=== PATIENT | male | born 1950 | race Caucasian/White ===

== ENCOUNTER 2024-04-16 08:29 | Outpatient (AMB) | payer MEDICARE, OTHER, SELFPAY ==
--- NOTE | 2024-04-16 08:32 | MHC.OFFVIS ---
Vital Signs 04/16/24 08:40 Height 5 ft 11 in Weight 203 lb 0.732 oz BMI 28.3 BP 132/70 Blood Pressure Location Lt brachial Position Sitting Pulse 63 Pulse Source Pulse Oximeter Pulse Oximetry (%) 96 Oxygen Delivery Method Room Air Intake Visit Reasons: RA/lm Intake Note: Patient presents for RA. Feeling everyday lower back pain and I'm very concern about my left lung. Allergies No Known Allergies Allergy (Verified 04/16/24 08:37) HPI Comments Details: This is a 74-year-old male who presents for evaluation of positive rheumatoid factor in the setting of large left pleural effusion. He started having left-sided pleuritic chest pain 08/2023, he had a chest x-ray which showed a small pleural effusion. 09/2023 patient started having right shoulder pain that he attributed to rotator cuff tendinopathy after throwing football, he had right shoulder pain that travels to the left shoulder. Because the shoulder pains got worse he had a left shoulder x-ray which incidentally showed a large left pleural effusion. He had a couple of thoracentesis procedures, the fluid was exudative with no signs of malignancy or infection. Weight factor was significantly elevated and he was sent to Rheumatology for evaluation of an underlying autoimmune rheumatic disease. Of note patient had of episodes of episcleritis back in 2005 which were treated with ibuprofen. Patient states that he has had low back pain decades. Associated with stiffness. Did not receive any specific treatments for it. He denies any other significant joint pain swelling or stiffness. Denies any weight loss. Denies any rashes or Raynaud's. Denies any history of DVT/PE. [facility] Medical History (Updated 04/16/24 @ 09:28 by Carlos Johnson MD) Episcleritis Pain in joint, multiple sites Rheumatoid factor positive CKD (chronic kidney disease) H/O pleural effusion Surgical History Hx of colonoscopy Family History (Updated 04/05/24 @ 12:07 by CHARLEY Elkins) Mother Breast cancer Father Multiple myeloma Maternal Grandmother Diabetes Social History (Updated 04/16/24 @ 08:58 by Carlos Johnson MD) Household Members: Spouse Housing: House Alcohol intake: current Comment: Occasionally Patient Tobacco Use Status: Never used Tobacco Current occupational status: retired Current occupation: teacher Review of Systems Const Reports fatigue Eyes Reports dry eyes ENT Details: Runny nose Resp Reports cough Musc Reports back pain, Denies arthralgias, Denies joint swelling and Denies stiffness Endo Reports fatigue Physical Exam Vital Signs: Last Vital Signs Pulse 63 04/16/24 08:40 BP 132/70 04/16/24 08:40 Pulse Ox 96 04/16/24 08:40 Oxygen Delivery Method Room Air 04/16/24 08:40 BMI result Body Mass Index 28.3 Const General: cooperative, healthy appearing and comfortable Nutritional Appearance: overweight Orientation/consciousness: patient oriented x3 Limitations: no limitations HEENT Head: Yes normocephalic and Yes atraumatic Mouth: moist mucous membranes Resp Effort & Inspection: normal respiratory effort and able to speak in complete sentences Cardio Rate: regular rate Skin General skin exam: no rashes or lesions noted Neuro General: patient oriented x3 Extrem Other: Slightly puffy fingers but no active synovitis both hands wrists Normal range of motion of elbows without pain Normal range of motion of shoulders without pain Negative rotator cuff provocative maneuvers bilaterally Negative Speed's test bilaterally Normal nailfold capillaroscopy Negative straight leg raise test bilaterally Negative Fabere test bilaterally No knee pain with full flexion-extension No ankle swelling or tenderness bilaterally Negative MTP squeeze test Miles test 10-13.5 cm Results Reviewed Results Reviewed: CAT SCAN OF CHEST NO CONTRAST ? Exam Date: 10/19/2023 ?8:40 AM Ordering Diagnosis: Pleural effusion ? CT CHEST WITHOUT CONTRAST ? HISTORY: Pleural effusion. ? COMPARISON: ?Chest x-ray 10/13/2023 ? FINDINGS: ? Lungs/pleura: There is a moderate left pleural effusion. ?There is compressive subsegmental atelectasis at the left lung base. ?There is a 5 mm subpleural nodule of the left lower lobe on ?image 128. ? Lymph nodes: Sensitivity for lymphadenopathy is limited without IV contrast. ?Subcentimeter mediastinal lymph nodes. ?No definite enlarged hilar lymph nodes. ? Cardiovascular: No cardiomegaly, pericardial effusion, or thoracic aortic aneurysm. ?There is calcification of the coronary arteries. ? Soft tissues: Thyroid gland is not enlarged. No esophageal abnormality. ? Upper abdomen: No adrenal mass. ?The pancreas is atrophic. ? Bones: There bridging osteophytes of the spine. ? IMPRESSION IMPRESSION: Moderate left pleural effusion with adjacent compressive subsegmental atelectasis. ? 5 mm subpleural nodule the left lower lobe X-RAY EXAM OF SHOULDER, COMPLETE Exam Date: 10/06/2023 12:05 PM Ordering Diagnosis: Bilateral shoulder pain, unspecified chronicity ? Bilateral shoulders. ? HISTORY: Pain. ? COMMENT: 4 views of each shoulder. There are degenerative changes in the AC joints bilaterally. There is no fractures, dislocations or abnormal soft tissue calcifications. Alignment is maintained. Incidental findings of from left pleural effusion which increased since prior study from 08/22/2023. ? IMPRESSION IMPRESSION: Degenerative changes in the AC joints bilaterally. Left pleural effusion, increased since previous examination. Assessment & Plan Assessment & Plan (1) Rheumatoid factor positive: Code(s): R76.8 - Other specified abnormal immunological findings in serum Category: Medical Plan: This is a 74-year-old male who presents for evaluation of positive rheumatoid factor in the setting of an exudative pleural effusion. Patient had a couple of episodes of episcleritis in 2005 treated with ibuprofen. He also gets rare intermittent joint pains in shoulders it has had chronic low back pain for years. He was referred for evaluation of rheumatoid arthritis. His pleural fluid was exudative with no suggestion of malignancy, cultures were negative. Glucose however was 110 mg. Rheumatoid lung effusions usually have significantly low glucose. I will order comprehensive serology to screen for underlying autoimmune rheumatic disease. Check x-rays of involved joints. Follow-up after blood work is completed in 6-7 weeks Plan I spent 60 minutes reviewing patient's chart, evaluating patient, ordering diagnostic workup, counseling patient and documenting in the chart Orders: Orders Erythrocyte Sedimentation Rate Today M06.9 - Rheumatoid arthritis, unspecified Hepatitis A,B,C Profile Today Z11.59 - Encounter for screening for other viral diseases Immunofixation Pnl, Serum Today M06.9 - Rheumatoid arthritis, unspecified T Spot TB Today Z11.7 - Encounter for testing for latent tuberculosis infection Lyme IgG/IgM w/reflex to WB Today M06.9 - Rheumatoid arthritis, unspecified Cyclic Citrullinated Peptide Today M06.9 - Rheumatoid arthritis, unspecified Cryoglobulin Today D89.1 - Cryoglobulinemia Anti DNA DS Antibody Today M32.9 - Systemic lupus erythematosus, unspecified Complement C4 Today M32.9 - Systemic lupus erythematosus, unspecified UA w Microscopic Today M32.9 - Systemic lupus erythematosus, unspecified MSA Panel Extended Today M60.9 - Myositis, unspecified XR cervical spine 4V Today M25.50 - Pain in unspecified joint XR hand wrist RT Today M25.50 - Pain in unspecified joint XR lumbar spine 4V min Today M25.50 - Pain in unspecified joint HLA B27 Today M45.9 - Ankylosing spondylitis of unspecified sites in spine Creatine Kinase Total Today D86.9 - Sarcoidosis, unspecified Angiotensin Converting Enzyme Today D86.9 - Sarcoidosis, unspecified Syphilis Screen Today A53.9 - Syphilis, unspecified Complete Blood Count Auto Diff Today M06.9 - Rheumatoid arthritis, unspecified Comprehensive Met. Panel Today M06.9 - Rheumatoid arthritis, unspecified C Reactive Protein Today M06.9 - Rheumatoid arthritis, unspecified Protein Electrophoresis, Serum Today M06.9 - Rheumatoid arthritis, unspecified ANCA Vasculitides Today I77.6 - Arteritis, unspecified ANN Reflex Titer and Pattern Today M32.9 - Systemic lupus erythematosus, unspecified Anti Extractable Nuclear Ag Today M32.9 - Systemic lupus erythematosus, unspecified Complement C3 Today M32.9 - Systemic lupus erythematosus, unspecified DNA Double Stranded-Crithidia Today M32.9 - Systemic lupus erythematosus, unspecified Protein Creatinine Ratio, Ur Today M32.9 - Systemic lupus erythematosus, unspecified Sjogren's Antibodies Today M32.9 - Systemic lupus erythematosus, unspecified Scleroderma 12 Panel Today M34.9 - Systemic sclerosis, unspecified XR hand wrist LT Today M25.50 - Pain in unspecified joint XR sacroiliac joint min 3V Today M25.50 - Pain in unspecified joint Coding Level of Care Code Est Pt Level 5 (06218) Diagnoses Rheumatoid factor positive R76.8
[2024-04-16 08:40] VITALS: BP 132/70; PULSE 63; O2SAT 96; BMI 28.3
== END 2024-04-16 09:15 | disposition home or self-care (01) ==
PROVIDERS: PCP Internal Medicine Critical Care Medicine; Visit Provider Student in an Organized Health Care Education/Training Program
DX: R76.8 Other specified abnormal immunological findings in serum (principal)
CPT/HCPCS: 99215; G2212

== ENCOUNTER 2024-04-16 08:29 | Outpatient (REF) | payer MEDICARE, OTHER, SELFPAY ==
--- NOTE | ~2024-04-16 | XR_ITS ---
EXAMINATION: XR CERVICAL SPINE XR LUMBAR SPINE XR SACROILIAC JOINTS XR BILATERAL HANDS AND WRISTS CLINICAL INFORMATION: Pain in unspecified joint. COMPARISON: None available. TECHNIQUE: 6 views cervical spine. 4 views of each hand. 5 views lumbar spine. AP view and bilateral oblique views of bilateral sacroiliac joints. FINDINGS: CERVICAL SPINE: Straightening of the normal cervical lordosis. Advanced degenerative changes with loss of disc space and hypertrophic change at C3-C4, C4-C5 and C5-C6. Bilateral multilevel facet arthritis with neural foraminal encroachment at these levels. RIGHT HAND AND WRIST: Moderate degenerative changes in the first carpometacarpal joint with joint space narrowing and hypertrophic change. Mild narrowing of the radiocarpal space. Minimal degenerative changes in multiple IP joints. LEFT HAND AND WRIST: Moderate degenerative changes in the first carpometacarpal joint with joint space narrowing and hypertrophic change. Mild narrowing of the radiocarpal space. Minimal degenerative changes in multiple IP joints. LUMBAR SPINE: Mild dextroscoliosis. Diffuse demineralization. Facet arthritis in the [id number]-iwjps lumbar spine. Multilevel spondylosis with prominent anterior osteophytes spanning L1-L2-L3-L4. Mild loss of disc space height at L5-S1. BILATERAL SACROILIAC JOINTS: Diffuse demineralization. Advanced degenerative changes on very limited, incomplete images of the bilateral hips. Mild degenerative changes in the bilateral sacroiliac joints. Asymmetric sclerotic focus overlying the medial aspect of the left iliac wing on some views. XR/XR hand wrist RT IMPRESSION: 1. Advanced degenerative disc disease at C3-C4, C4-C5 and C5-C6. 2. Moderate degenerative changes in the bilateral first carpometacarpal joints. 3. Multilevel spondylosis in the lumbar spine. 4. Mild degenerative changes in the bilateral sacroiliac joints. 5. Asymmetric sclerotic focus overlying the medial aspect of the left iliac wing on some views. Correlation with clinical exam recommended. 6. Diffuse demineralization. Advanced degenerative changes on very limited, incomplete images of the bilateral hips. Dedicated views of the hips recommended for further evaluation.
--- NOTE | ~2024-04-16 | XR_ITS ---
EXAMINATION: XR CERVICAL SPINE XR LUMBAR SPINE XR SACROILIAC JOINTS XR BILATERAL HANDS AND WRISTS CLINICAL INFORMATION: Pain in unspecified joint. COMPARISON: None available. TECHNIQUE: 6 views cervical spine. 4 views of each hand. 5 views lumbar spine. AP view and bilateral oblique views of bilateral sacroiliac joints. FINDINGS: CERVICAL SPINE: Straightening of the normal cervical lordosis. Advanced degenerative changes with loss of disc space and hypertrophic change at C3-C4, C4-C5 and C5-C6. Bilateral multilevel facet arthritis with neural foraminal encroachment at these levels. RIGHT HAND AND WRIST: Moderate degenerative changes in the first carpometacarpal joint with joint space narrowing and hypertrophic change. Mild narrowing of the radiocarpal space. Minimal degenerative changes in multiple IP joints. LEFT HAND AND WRIST: Moderate degenerative changes in the first carpometacarpal joint with joint space narrowing and hypertrophic change. Mild narrowing of the radiocarpal space. Minimal degenerative changes in multiple IP joints. LUMBAR SPINE: Mild dextroscoliosis. Diffuse demineralization. Facet arthritis in the [id number] lumbar spine. Multilevel spondylosis with prominent anterior osteophytes spanning L1-L2-L3-L4. Mild loss of disc space height at L5-S1. BILATERAL SACROILIAC JOINTS: Diffuse demineralization. Advanced degenerative changes on very limited, incomplete images of the bilateral hips. Mild degenerative changes in the bilateral sacroiliac joints. Asymmetric sclerotic focus overlying the medial aspect of the left iliac wing on some views. XR/XR lumbar spine 4V min IMPRESSION: 1. Advanced degenerative disc disease at C3-C4, C4-C5 and C5-C6. 2. Moderate degenerative changes in the bilateral first carpometacarpal joints. 3. Multilevel spondylosis in the lumbar spine. 4. Mild degenerative changes in the bilateral sacroiliac joints. 5. Asymmetric sclerotic focus overlying the medial aspect of the left iliac wing on some views. Correlation with clinical exam recommended. 6. Diffuse demineralization. Advanced degenerative changes on very limited, incomplete images of the bilateral hips. Dedicated views of the hips recommended for further evaluation.
--- NOTE | ~2024-04-16 | XR_ITS ---
EXAMINATION: XR CERVICAL SPINE XR LUMBAR SPINE XR SACROILIAC JOINTS XR BILATERAL HANDS AND WRISTS CLINICAL INFORMATION: Pain in unspecified joint. COMPARISON: None available. TECHNIQUE: 6 views cervical spine. 4 views of each hand. 5 views lumbar spine. AP view and bilateral oblique views of bilateral sacroiliac joints. FINDINGS: CERVICAL SPINE: Straightening of the normal cervical lordosis. Advanced degenerative changes with loss of disc space and hypertrophic change at C3-C4, C4-C5 and C5-C6. Bilateral multilevel facet arthritis with neural foraminal encroachment at these levels. RIGHT HAND AND WRIST: Moderate degenerative changes in the first carpometacarpal joint with joint space narrowing and hypertrophic change. Mild narrowing of the radiocarpal space. Minimal degenerative changes in multiple IP joints. LEFT HAND AND WRIST: Moderate degenerative changes in the first carpometacarpal joint with joint space narrowing and hypertrophic change. Mild narrowing of the radiocarpal space. Minimal degenerative changes in multiple IP joints. LUMBAR SPINE: Mild dextroscoliosis. Diffuse demineralization. Facet arthritis in the [id number]-[id number] lumbar spine. Multilevel spondylosis with prominent anterior osteophytes spanning L1-L2-L3-L4. Mild loss of disc space height at L5-S1. BILATERAL SACROILIAC JOINTS: Diffuse demineralization. Advanced degenerative changes on very limited, incomplete images of the bilateral hips. Mild degenerative changes in the bilateral sacroiliac joints. Asymmetric sclerotic focus overlying the medial aspect of the left iliac wing on some views. XR/XR sacroiliac joint min 3V IMPRESSION: 1. Advanced degenerative disc disease at C3-C4, C4-C5 and C5-C6. 2. Moderate degenerative changes in the bilateral first carpometacarpal joints. 3. Multilevel spondylosis in the lumbar spine. 4. Mild degenerative changes in the bilateral sacroiliac joints. 5. Asymmetric sclerotic focus overlying the medial aspect of the left iliac wing on some views. Correlation with clinical exam recommended. 6. Diffuse demineralization. Advanced degenerative changes on very limited, incomplete images of the bilateral hips. Dedicated views of the hips recommended for further evaluation.
--- NOTE | ~2024-04-16 | XR_ITS ---
EXAMINATION: XR CERVICAL SPINE XR LUMBAR SPINE XR SACROILIAC JOINTS XR BILATERAL HANDS AND WRISTS CLINICAL INFORMATION: Pain in unspecified joint. COMPARISON: None available. TECHNIQUE: 6 views cervical spine. 4 views of each hand. 5 views lumbar spine. AP view and bilateral oblique views of bilateral sacroiliac joints. FINDINGS: CERVICAL SPINE: Straightening of the normal cervical lordosis. Advanced degenerative changes with loss of disc space and hypertrophic change at C3-C4, C4-C5 and C5-C6. Bilateral multilevel facet arthritis with neural foraminal encroachment at these levels. RIGHT HAND AND WRIST: Moderate degenerative changes in the first carpometacarpal joint with joint space narrowing and hypertrophic change. Mild narrowing of the radiocarpal space. Minimal degenerative changes in multiple IP joints. LEFT HAND AND WRIST: Moderate degenerative changes in the first carpometacarpal joint with joint space narrowing and hypertrophic change. Mild narrowing of the radiocarpal space. Minimal degenerative changes in multiple IP joints. LUMBAR SPINE: Mild dextroscoliosis. Diffuse demineralization. Facet arthritis in the [id number]-qj-ewibg lumbar spine. Multilevel spondylosis with prominent anterior osteophytes spanning L1-L2-L3-L4. Mild loss of disc space height at L5-S1. BILATERAL SACROILIAC JOINTS: Diffuse demineralization. Advanced degenerative changes on very limited, incomplete images of the bilateral hips. Mild degenerative changes in the bilateral sacroiliac joints. Asymmetric sclerotic focus overlying the medial aspect of the left iliac wing on some views. XR/XR hand wrist LT IMPRESSION: 1. Advanced degenerative disc disease at C3-C4, C4-C5 and C5-C6. 2. Moderate degenerative changes in the bilateral first carpometacarpal joints. 3. Multilevel spondylosis in the lumbar spine. 4. Mild degenerative changes in the bilateral sacroiliac joints. 5. Asymmetric sclerotic focus overlying the medial aspect of the left iliac wing on some views. Correlation with clinical exam recommended. 6. Diffuse demineralization. Advanced degenerative changes on very limited, incomplete images of the bilateral hips. Dedicated views of the hips recommended for further evaluation.
--- NOTE | ~2024-04-16 | XR_ITS ---
EXAMINATION: XR CERVICAL SPINE XR LUMBAR SPINE XR SACROILIAC JOINTS XR BILATERAL HANDS AND WRISTS CLINICAL INFORMATION: Pain in unspecified joint. COMPARISON: None available. TECHNIQUE: 6 views cervical spine. 4 views of each hand. 5 views lumbar spine. AP view and bilateral oblique views of bilateral sacroiliac joints. FINDINGS: CERVICAL SPINE: Straightening of the normal cervical lordosis. Advanced degenerative changes with loss of disc space and hypertrophic change at C3-C4, C4-C5 and C5-C6. Bilateral multilevel facet arthritis with neural foraminal encroachment at these levels. RIGHT HAND AND WRIST: Moderate degenerative changes in the first carpometacarpal joint with joint space narrowing and hypertrophic change. Mild narrowing of the radiocarpal space. Minimal degenerative changes in multiple IP joints. LEFT HAND AND WRIST: Moderate degenerative changes in the first carpometacarpal joint with joint space narrowing and hypertrophic change. Mild narrowing of the radiocarpal space. Minimal degenerative changes in multiple IP joints. LUMBAR SPINE: Mild dextroscoliosis. Diffuse demineralization. Facet arthritis in the [id number]-wt-[id number] lumbar spine. Multilevel spondylosis with prominent anterior osteophytes spanning L1-L2-L3-L4. Mild loss of disc space height at L5-S1. BILATERAL SACROILIAC JOINTS: Diffuse demineralization. Advanced degenerative changes on very limited, incomplete images of the bilateral hips. Mild degenerative changes in the bilateral sacroiliac joints. Asymmetric sclerotic focus overlying the medial aspect of the left iliac wing on some views. XR/XR cervical spine 4V IMPRESSION: 1. Advanced degenerative disc disease at C3-C4, C4-C5 and C5-C6. 2. Moderate degenerative changes in the bilateral first carpometacarpal joints. 3. Multilevel spondylosis in the lumbar spine. 4. Mild degenerative changes in the bilateral sacroiliac joints. 5. Asymmetric sclerotic focus overlying the medial aspect of the left iliac wing on some views. Correlation with clinical exam recommended. 6. Diffuse demineralization. Advanced degenerative changes on very limited, incomplete images of the bilateral hips. Dedicated views of the hips recommended for further evaluation.
[2024-04-16 10:19] LABS: MANUAL DIFF FLAG NO
[2024-04-16 10:34] LABS: Basophils Percent Auto 0.3 % (0-2); Eosinophils Percent Auto 0.5 % (0-4); Hemoglobin 14.7 g/dl (14.0-18.0); Imm Gran Abs Auto 0.02 X10*3/uL (0.00-0.03); Imm Gran Pct Auto 0.3 % (0.0-0.4); Lymphocytes Absolute Auto 1.3 X10*3/uL (1.2-4.9); Lymphocytes Percent Auto 20.8 % (20-40); Mean Corpuscular HGB Conc 34.2 g/dl (31.0-36.0); Mean Corpuscular Hemoglobin 31.6 pg (27.0-33.0); Mean Corpuscular Volume 92.5 fL (80.0-98.0); Mean Platelet Volume 9.1 fL (9.4-12.4); Monocytes Absolute Auto 0.5 X10*3/uL (0.1-1.2); Monocytes Percent Auto 7.5 % (2-11); Neutrophils Absolute Auto 4.5 x10*3/uL (2.0-8.3); Neutrophils Percent Auto 70.6 % (45-73); Platelet Count 213 X10*3/uL (160-400); Red Blood Count 4.65 X10*6/uL (4.60-5.80); Red Cell Distribution Width 13.1 % (11.0-16.0); White Blood Count 6.3 X10*3/uL (4.8-10.8)
[2024-04-16 10:37] LABS: Appearance Urine Clear; Color Urine Yellow; Glucose Urine UA Negative (Negative); Leukocyte Esterase Urine Negative (Negative); Nitrite Urine Negative (Negative); PH 5.5 (5.0-9.0); Specific Gravity - Urine 1.025 (1.005-1.025); Urine Blood Negative (Negative); Urine Ketones Negative (Negative); Urine Protein Negative (Neg-Trace)
[2024-04-16 10:41] LABS: Bacteria Urine None Seen (None Seen); Hyaline Casts Urine 0-2 /LPF (0-2); RBC Urine 0-2 /HPF (0-2); Squamous Epithelial Cell Urine 0-2 /HPF (0-2); WBC Urine 0-5 /HPF (0-5)
[2024-04-16 11:04] LABS: Alanine Aminotransferase 15 U/L (0-40); Albumin Level 4.3 g/dL (3.5-5.0); Alkaline Phosphatase 40 U/L (39-117); Anion Gap 11 (12-20); Aspartate Amino Transferase 15 U/L (5-37); Bilirubin Total 1.2 mg/dL (0.0-1.0); Blood Urea Nitrogen 33 mg/dL (9-16); C Reactive Protein 0.16 mg/dL (< or = 0.50); Calcium 9.6 mg/dL (8.4-10.2); Carbon Dioxide 26 mmol/L (22-29); Chloride 108 mmol/L (96-108); Estimated Glomerular Filt Rate > 60; Glucose Random 118 mg/dL (60-115); Potassium 5.1 mmol/L (3.3-5.1); Sodium 140 mmol/L (135-145); Total Protein 7.3 g/dL (6.5-8.0)
[2024-04-16 11:07] LABS: Erythrocyte Sedimentation Rate 6 MM/HR (0-15)
[2024-04-16 11:18] LABS: Total Protein Urine Random < 7 mg/dL (<12)
[2024-04-16 11:22] LABS: HBS Num1 18.18 mIU/mL (0-7.99); HBc Num1 0.11 S/CO (0.00-0.79); HBsAGNum1 0.31 S/CO (0.00-0.99); Hepatitis A Antibody IgM 0.26 Index (0-0.79); Hepatitis B Core Antibody Nonreactive (Nonreactive); Hepatitis B Surface Antigen Negative (Negative); ~HepC Num1 0.24 S/CO (0.00-0.79); ~Hepatitis A Antibody IgM Nonreactive (Nonreactive); ~Hepatitis B Surface Antibody REACTIVE (Nonreactive); ~Hepatitis C Antibody Nonreactive (Nonreactive)
[2024-04-17 13:18] LABS: Lyme Abs Screen <0.90 index
[2024-04-17 13:48] LABS: Anti DNA DS Antibody 6 IU/mL; Antibody to SS-A Antigen <1.0 NEG AI (<1.0 NEG); Antibody to SS-B Antigen <1.0 NEG AI (<1.0 NEG); Myeloperoxidase Antibody <1.0 AI; Proteinase 3 PR3 Antibodies <1.0 AI; SM/Ribonucleoprotein Ab <1.0 NEG AI (<1.0 NEG); Smith Protein <1.0 NEG AI (<1.0 NEG)
[2024-04-18 08:48] LABS: Complement C3 44 mg/dL (82-185)
[2024-04-18 20:24] LABS: Cyclic Citrullinated Peptide 18 UNITS
[2024-04-18 21:38] LABS: Angiotensin Converting Enzyme 17 U/L (9-67)
[2024-04-18 22:28] LABS: TS Negative Control Passed; TS Panel A 0; TS Panel B 0; TS Positive Control Passed; TSpotTB Negative (Negative)
[2024-04-19 21:30] LABS: IgA 77 mg/dL (70-320); IgG 1266 mg/dL (600-1540); IgM 138 mg/dL (50-300)
[2024-04-20 01:58] LABS: HLA B27 Negative (Negative)
[2024-04-22 22:48] LABS: Cryocrit None Detected; Cryoglobulin, Qual Negative (Negative)
[2024-04-22 23:34] LABS: Prot Elec - Albumin 4.3 g/dL (3.8-4.8); Prot Elec - Alpha1 0.3 g/dL (0.2-0.3); Prot Elec - Alpha2 0.6 g/dL (0.5-0.9); Prot Elec - Beta 1 0.4 g/dL (0.4-0.6); Prot Elec - Beta 2 0.3 g/dL (0.2-0.5); Prot Elec - Gamma 1.2 g/dL (0.8-1.7)
[2024-04-23 11:38] LABS: Anti Nuclear Antibody Screen NEGATIVE (NEGATIVE)
[2024-04-23 16:08] LABS: DNAds, Crithidia Antibody Negative (Negative)
[2024-04-26 12:53] LABS: Centromere Protein A Ab <11 SI (<11); Centromere Protein B Ab <11 SI (<11); Fibrillarin Ab <11 SI (<11); PM SCL 100 Ab <11 SI (<11); PM SCL 75 Ab <11 SI (<11); RNA Polymerase III RP11 Ab <11 SI (<11); RNA Polymerase III RP155 Ab <11 SI (<11); SCL-70 Extractable Nuclear Ab <11 SI (<11); Th-To Ab <11 SI (<11); U1 SNRNP RNP 70KD <11 SI (<11); U1 SNRNP RNP A <11 SI (<11); U1 SNRNP RNP C <11 SI (<11)
[2024-04-28 16:13] LABS: Cytosolic 5'nuc 1A Ab IgG <5 Units; Ej Ab <11 SI (<11); HMGCR Ab IgG <2 CU (<20); Jo-1 Ab <11 SI (<11); MDA5 Ab <11 SI (<11); Mi-2 alpha Ab <11 SI (<11); Mi-2 beta Ab <11 SI (<11); NXP-2 (MJ) Ab <11 SI (<11); Oj Ab <11 SI (<11); Pl-12 Ab <11 SI (<11); Pl-7 Ab <11 SI (<11); SRP Ab <11 SI (<11); TIF1 gamma Ab <11 SI (<11)
== END 2024-04-16 08:30 | disposition home or self-care (01) ==
LOC: HO.LAB 08:29
PROVIDERS: PCP Internal Medicine; Visit Provider Student in an Organized Health Care Education/Training Program
DX: Z11.7 Encounter for testing for latent tuberculosis infection (principal); Z11.59 Encounter for screening for other viral diseases; Z72.89 Other problems related to lifestyle; D89.1 Cryoglobulinemia; M32.9 Systemic lupus erythematosus, unspecified; D86.9 Sarcoidosis, unspecified; M06.9 Rheumatoid arthritis, unspecified; I77.6 Arteritis, unspecified; M34.9 Systemic sclerosis, unspecified; M45.9 Ankylosing spondylitis of unspecified sites in spine; M25.50 Pain in unspecified joint; R76.8 Other specified abnormal immunological findings in serum
CPT/HCPCS: 36415; 72050; 72110; 72202; 73110; 73130; 80053; 81001; 82164; 82550; 82570; 82595; 82784; 83516; 83520; 84156; 84165; 84182; 85025; 85652; 86021; 86038; 86140; 86160; 86200; 86225; 86235; 86255; 86334; 86481; 86617; 86618; 86704; 86706; 86709; 86803; 86812; 87340; 99212

== ENCOUNTER 2024-05-15 07:54 | Outpatient (AMB) | payer MEDICARE, OTHER, SELFPAY ==
[2024-05-15 07:57] VITALS: BP 128/72; PULSE 57; O2SAT 97; BMI 28.6
--- NOTE | 2024-05-15 07:57 | A.OFFVIS_ITS ---
Vital Signs 05/15/24 07:57 Height 5 ft 11 in Weight 204 lb 12.951 oz BMI 28.6 BP 128/72 Blood Pressure Location Lt brachial Position Sitting Pulse 57 Pulse Source Pulse Oximeter Pulse Oximetry (%) 97 Oxygen Delivery Method Room Air Intake Visit Reasons: RF+ Pl. effusion Intake Note: Patient last seen by Doctor Carlos Johnson on 04/16/2024. Presents today for follow up on RF + PL. effusion and test results. Allergies No Known Allergies Allergy (Verified 05/15/24 07:59) Medication List - Last Reconciled 05/15/24 by Carlos Johnson MD bimatoprost 0.01% (Lumigan) drps ophthalmic (eye) brimonidine-timolol 0.2-0.5 % 1 drp ophthalmic (eye) BID finasteride 5 mg PO DAILY tamsulosin 0.4 mg PO DAILY HPI Comments Details: Patient returns for follow-up after completion of his diagnostic workup. He feels about the same, has not had any recurrent pleural effusions. Denies any significant joint swelling or stiffness. He states that he has had low back pain and hip pain for many years. Initial history: This is a 74-year-old male who presents for evaluation of positive rheumatoid factor in the setting of large left pleural effusion. He started having left-sided pleuritic chest pain 08/2023, he had a chest x-ray which showed a small pleural effusion. 09/2023 patient started having right shoulder pain that he attributed to rotator cuff tendinopathy after throwing football, he had right shoulder pain that travels to the left shoulder. Because the shoulder pains got worse he had a left shoulder x-ray which incidentally showed a large left pleural effusion. He had a couple of thoracentesis procedures, the fluid was exudative with no signs of malignancy or infection. Weight factor was significantly elevated and he was sent to Rheumatology for evaluation of an underlying autoimmune rheumatic disease. Of note patient had of episodes of episcleritis back in 2005 which were treated with ibuprofen. Patient states that he has had low back pain decades. Associated with stiffness. Did not receive any specific treatments for it. He denies any other significant joint pain swelling or stiffness. Denies any weight loss. Denies any rashes or Raynaud's. Denies any history of DVT/PE. [facility] Medical History Skin cancer Episcleritis Pain in joint, multiple sites Rheumatoid factor positive CKD (chronic kidney disease) H/O pleural effusion Surgical History Hx of colonoscopy Family History Mother Breast cancer Father Multiple myeloma Maternal Grandmother Diabetes Social History Household Members: Spouse Housing: House Alcohol intake: current Comment: Occasionally Patient Tobacco Use Status: Never used Tobacco Current occupational status: retired Current occupation: teacher Review of Systems Musc Reports back pain, Denies arthralgias, Denies joint swelling and Denies stiffness Physical Exam Vital Signs: Last Vital Signs Pulse 57 05/15/24 07:57 BP 128/72 05/15/24 07:57 Pulse Ox 97 05/15/24 07:57 Oxygen Delivery Method Room Air 05/15/24 07:57 BMI result Body Mass Index 28.6 Const General: cooperative, healthy appearing and comfortable Nutritional Appearance: overweight Orientation/consciousness: patient oriented x3 Limitations: no limitations HEENT Head: Yes normocephalic and Yes atraumatic Mouth: moist mucous membranes Resp Effort & Inspection: normal respiratory effort and able to speak in complete sentences Cardio Rate: regular rate Skin General skin exam: no rashes or lesions noted Neuro General: patient oriented x3 Extrem Other: no active synovitis both hands wrists Normal range of motion of elbows without pain Normal range of motion of shoulders without pain Negative rotator cuff provocative maneuvers bilaterally Negative Speed's test bilaterally Normal nailfold capillaroscopy Negative straight leg raise test bilaterally Negative Fabere test bilaterally No knee pain with full flexion-extension No ankle swelling or tenderness bilaterally Negative MTP squeeze test Miles test 10-13.5 cm Results Reviewed Results Reviewed: CAT SCAN OF CHEST NO CONTRAST ? Exam Date: 10/19/2023 ?8:40 AM Ordering Diagnosis: Pleural effusion ? CT CHEST WITHOUT CONTRAST ? HISTORY: Pleural effusion. ? COMPARISON: ?Chest x-ray 10/13/2023 ? FINDINGS: ? Lungs/pleura: There is a moderate left pleural effusion. ?There is compressive subsegmental atelectasis at the left lung base. ?There is a 5 mm subpleural nodule of the left lower lobe on ?image 128. ? Lymph nodes: Sensitivity for lymphadenopathy is limited without IV contrast. ?Subcentimeter mediastinal lymph nodes. ?No definite enlarged hilar lymph nodes. ? Cardiovascular: No cardiomegaly, pericardial effusion, or thoracic aortic aneurysm. ?There is calcification of the coronary arteries. ? Soft tissues: Thyroid gland is not enlarged. No esophageal abnormality. ? Upper abdomen: No adrenal mass. ?The pancreas is atrophic. ? Bones: There bridging osteophytes of the spine. ? IMPRESSION IMPRESSION: Moderate left pleural effusion with adjacent compressive subsegmental atelectasis. ? 5 mm subpleural nodule the left lower lobe X-RAY EXAM OF SHOULDER, COMPLETE Exam Date: 10/06/2023 12:05 PM Ordering Diagnosis: Bilateral shoulder pain, unspecified chronicity ? Bilateral shoulders. ? HISTORY: Pain. ? COMMENT: 4 views of each shoulder. There are degenerative changes in the AC j oints bilaterally. There is no fractures, dislocations or abnormal soft tissue calcifications. Alignment is maintained. Incidental findings of from left pleural effusion which increased since prior study from 08/22/2023. ? IMPRESSION IMPRESSION: Degenerative changes in the AC joints bilaterally. Left pleural effusion, increased since previous examination. Ordering Physician: Carlos Johnson MD Date of Service: 04/16/24 Procedure(s): XR sacroiliac joint min 3V Accession Number(s): [id number] cc: Carlos Johnson MD; Lai Diop MD~ EXAMINATION: XR CERVICAL SPINE XR LUMBAR SPINE XR SACROILIAC JOINTS XR BILATERAL HANDS AND WRISTS CLINICAL INFORMATION: Pain in unspecified joint. COMPARISON: None available. TECHNIQUE: 6 views cervical spine. 4 views of each hand. 5 views lumbar spine. AP view and bilateral oblique views of bilateral sacroiliac joints. FINDINGS: CERVICAL SPINE: Straightening of the normal cervical lordosis. Advanced degenerative changes with loss of disc space and hypertrophic change at C3-C4, C4-C5 and C5-C6. Bilateral multilevel facet arthritis with neural foraminal encroachment at these levels. RIGHT HAND AND WRIST: Moderate degenerative changes in the first carpometacarpal joint with joint space narrowing and hypertrophic change. Mild narrowing of the radiocarpal space. Minimal degenerative changes in multiple IP joints. LEFT HAND AND WRIST: Moderate degenerative changes in the first carpometacarpal joint with joint space narrowing and hypertrophic change. Mild narrowing of the radiocarpal space. Minimal degenerative changes in multiple IP joints. LUMBAR SPINE: Mild dextroscoliosis. Diffuse demineralization. Facet arthritis in the [id number] lumbar spine. Multilevel spondylosis with prominent anterior osteophytes spanning L1-L2-L3-L4. Mild loss of disc space height at L5-S1. BILATERAL SACROILIAC JOINTS: Diffuse demineralization. Advanced degenerative changes on very limited, incomplete images of the bilateral hips. Mild degenerative changes in the bilateral sacroiliac joints. Asymmetric sclerotic focus overlying the medial aspect of the left iliac wing on some views. XR/XR sacroiliac joint min 3V IMPRESSION: 1. Advanced degenerative disc disease at C3-C4, C4-C5 and C5-C6. 2. Moderate degenerative changes in the bilateral first carpometacarpal joints. 3. Multilevel spondylosis in the lumbar spine. 4. Mild degenerative changes in the bilateral sacroiliac joints. 5. Asymmetric sclerotic focus overlying the medial aspect of the left iliac wing on some views. Correlation with clinical exam recommended. 6. Diffuse demineralization. Advanced degenerative changes on very limited, incomplete images of the bilateral hips. Dedicated views of the hips recommended for further evaluation. Assessment & Plan Assessment & Plan (1) Rheumatoid factor positive: Code(s): R76.8 - Other specified abnormal immunological findings in serum Category: Medical Plan: This is a 74-year-old male who presents for evaluation of positive rheumatoid factor in the setting of an exudative pleural effusion. Patient had a couple of episodes of episcleritis in 2005 treated with ibuprofen. He also gets rare intermittent joint pains in shoulders & has had chronic low back pain for years. He was referred for evaluation of rheumatoid arthritis. His pleural fluid was exudative with no suggestion of malignancy, cultures were negative. Glucose however was 110 mg. Rheumatoid lung effusions usually have significantly low glucose. Comprehensive serology other than the positive rheumatoid factor is negative. Patient certainly does not fit the classic presentation of rheumatoid arthritis. I think patient should be monitored for recurrent pleural effusions, consider chest x-rays every 3-4 months. Discussed with patient symptoms and signs that are suggestive of inflammatory arthritis. His clinical history, exam and radiographic findings are consistent with degenerative arthritis involving multiple joints. Perhaps the episode of intermittent joint pain involving his shoulders was inflammatory however patient does not have significant or persistent inflammatory arthritis symptoms that warrant DMARD treatment. He had another chest x-ray 05/06 which did not show recurrence of pleural effusion. Re-evaluate in 6 months. If patient starts having recurrent pleural effusions or start showing any other signs suggestive of autoimmune rheumatic disease I am inclined to start a DMARD. Plan I spent 30 minutes reviewing patient's chart, evaluating patient, counseling patient and documenting in the chart Coding Level of Care Code Est Pt Level 4 (91348) Diagnoses Rheumatoid factor positive R76.8
== END 2024-05-15 08:21 | disposition home or self-care (01) ==
PROVIDERS: PCP Internal Medicine Critical Care Medicine; Visit Provider Student in an Organized Health Care Education/Training Program
DX: R76.8 Other specified abnormal immunological findings in serum (principal)
CPT/HCPCS: 99214

== ENCOUNTER → 2024-05-15 07:54 | Outpatient (BNVA) | payer MEDICARE, OTHER, SELFPAY | PROVIDERS: PCP Internal Medicine Critical Care Medicine; Visit Provider Student in an Organized Health Care Education/Training Program | DX: R76.8 Other specified abnormal immunological findings in serum (principal) | CPT/HCPCS: 99212 ==

== ENCOUNTER 2025-03-04 15:15 | Outpatient (AMB) | payer MEDICARE, OTHER, SELFPAY ==
[2025-03-04 15:15] VITALS: BP 126/76; PULSE 71; O2SAT 98; BMI 28.8
--- NOTE | 2025-03-04 15:15 | A.OFFVIS_ITS ---
Vital Signs 03/04/25 15:15 Height 5 ft 11 in Weight 206 lb 9.17 oz BMI 28.8 BP 126/76 Blood Pressure Location Lt brachial Position Sitting Pulse 71 Pulse Source Pulse Oximeter Pulse Oximetry (%) 98 Oxygen Delivery Method Room Air Intake Visit Reasons: RF+ Pl. effusion Intake Note: Patient last seen by Doctor Carlos Johnson on 05/15/24. Presents today for RF + Pl effusion follow up. Allergies No Known Allergies Allergy (Verified 03/04/25 15:18) HPI Comments Details: Patient is a 75-year-old male with BPH and recurrent pleural effusions in the setting of positive rheumatoid factor here today for follow up. Interval History: Patient last seen 05/15/[address] Johnson. At that time he was following up after completion of diagnostic workup. At that time there was no evidence to suggest rheumatoid arthritis or needing active DMARD management No change in his symptomatology since then: no prolonged AM stiffness, joint swelling Currently undergoing treatment for prostate cancer with radiation Does report left groin pain at times ( feels like a muscle pull ) Last CXR was last 6 months was normal Rheumatologic History: Initial history: This is a 74-year-old male who presents for evaluation of positive rheumatoid factor in the setting of large left pleural effusion. He started having left-sided pleuritic chest pain 08/2023, he had a chest x-ray which showed a small pleural effusion. 09/2023 patient started having right shoulder pain that he attributed to rotator cuff tendinopathy after throwing football, he had right shoulder pain that travels to the left shoulder. Because the shoulder pains got worse he had a left shoulder x-ray which incidentally showed a large left pleural effusion. He had a couple of thoracentesis procedures, the fluid was exudative with no signs of malignancy or infection. Weight factor was significantly elevated and he was sent to Rheumatology for evaluation of an underlying autoimmune rheumatic disease. Of note patient had of episodes of episcleritis back in 2005 which were treated with ibuprofen. Patient states that he has had low back pain decades. Associated with stiffness. Did not receive any specific treatments for it. He denies any other significant joint pain swelling or stiffness. Denies any weight loss. Denies any rashes or Raynaud's. Denies any history of DVT/PE. No known history of autoimmune disease in the family Current Rheumatology Medication(s): [facility] Medical History Skin cancer Episcleritis Pain in joint, multiple sites Rheumatoid factor positive CKD (chronic kidney disease) H/O pleural effusion Surgical History Hx of colonoscopy Family History Mother Breast cancer Father Multiple myeloma Maternal Grandmother Diabetes Social History Household Members: Spouse Housing: House Alcohol intake: current Comment: Occasionally Patient Tobacco Use Status: Never used Tobacco Current occupational status: retired Current occupation: teacher Review of Systems Const Details: Review of Systems Constitutional: Denies fever, chills, weight loss ENT: Denies vision changes, eye pain or eye redness, dental caries, dry mouth GI: Denies nausea, vomiting, diarrhea, abdominal pain, change in BM Pulm: Denies SOB, CHEN, hemoptysis, wheezing Cards: Denies chest pain, palpitations Skin: Denies Raynaud's, rash, nail changes, photosensitivity, MARKETING TEACHER: Denies headaches, weakness, paresthesias, recurrent falls MSK: as per HPI All other systems reviewed and are unremarkable except noted above Physical Exam Vital Signs: BMI result Body Mass Index 28.8 Vital signs reviewed Physical Examination CONSTITUITIONAL Patient alert and cooperative. Well appearing and in no apparent painful distress HEENT Conjunctiva and sclera clear. ?Pupils equal round and reactive to light. ?No lymphadenopathy. ? CHEST/RESPIRATORY SYSTEM Normal respiratory effort and able to speak in complete sentences. ?Clear to auscultation bilaterally. ?No crackles, rales, rhonchi, wheezes heard. CARDIAC SYSTEM Regular rate and rhythm. ?S1 and S2 heard no murmurs. ?Radial pulses intact bilaterally MSK Hands: ?Able to make a fist. No synovitis noted to the MCPs, PIPs or DIPs. ?No tenderness to palpation of these joints. No deformities noted. ? Wrists: ?Full range of motion at the wrists without pain. ?No tenderness to palpation or synovitis noted to the wrists. Elbows: Full range of motion without pain. No tenderness, weakness, swelling, increased warmth or erythema. Shoulders: Full range of active range of motion without pain. No tenderness, weakness, swelling, increased warmth or erythema. Hips: Full range of motion without pain. Hip bursa: No tenderness to palpation Knees: ?Full range of motion. ?No tenderness, swelling, increased warmth or erythema.?No effusion or crepitations Ankles: Full range of motion. ?No tenderness, swelling, increased warmth or erythema.? Feet: ?Negative squeeze test. ?No tenderness to palpation or swelling of the MTPs. Tender points:?No tenderness to palpation of the bilateral trapezius, supraspinatus, greater trochanters, anterior costochondral junctions, bilateral gluteal areas, bilateral suboccipital muscle insertions SKIN Skin intact without rashes. Results Reviewed Results Reviewed: Laboratory Tests 04/16/24 09:53 WBC 6.3 RBC 4.65 Hgb 14.7 Hct 43.0 Plt Count 213 ESR 6 Sodium 140 Potassium 5.1 Chloride 108 Carbon Dioxide 26 BUN 33 H Creatinine 1.15 AST 15 ALT 15 C-Reactive Protein 0.16 ANN Screen NEGATIVE Assessment & Plan Assessment & Plan (1) Recurrent pleural effusion: Code(s): J90 - Pleural effusion, not elsewhere classified Plan: #Idiopathic recurrent pleural effusions Patient is a 75-year-old male with idiopathic recurrent pleural effusion in the setting of a positive rheumatoid factors here today for follow up. No further pleural effusions since the last visit. At this time exam and history not consistent with any underlying autoimmune disease. We will continue to monitor him intermittently Plan - No DMARDs at this time - Yearly follow up with yearly chest x-ray - Get Pulm notes Plan I spent 20 minutes reviewing the record and labs, taking a history, examining the patient, discussing the treatment plan, ordering diagnostic work up and documenting in the medical record Coding Level of Care Code Est Pt Level 3 (19958) Diagnoses Recurrent pleural effusion J90
--- OUTSIDE RECORDS SUMMARY | 2025-03-04 15:16 | XMS_ITS | Encounter Summary ---
Author Organization [facility] Address [address] [place] [address] Care Team Providers Care Machine Stemmer Name Role Phone Lai Diop MD Primary Care Provider [phone] Encounter Details Date Type Department Care Team (Late Contact Info) Description 11/13/2024 Lab Requisition [facility] - Main Lab [address] [facility] [place] [address] Ric Patel MD 100 [facility] [address] [place] [id number] Elevated prostate specific antigen (PSA) Social History Tobacco Use Types Packs/Day Years Used Date Smoking Tobacco: Never Smokeless Tobacco: Never Alcohol Use Standard Drinks/Week Comments Yes 0 (1 standard drink = 0.6 oz pur e alcohol) Sex and Gender Information Value Date Recorded Sex Assigned at Not on file Legal Sex Male 4:48 AM EST Gender Identity Not on file Sexual Orientation Not on file documented as of this encounter Plan of Treatment Upcoming Encounters Date Type Department Care Team (Late Contact Info) Description 03/31/2025 8:45 AM EDT [facility] [address] [facility] [address] [place] [address] Ivan Wu MD 175 [facility] [address] [place], [place] [id number] 04/03/2025 9:45 AM EDT Office Visit Adult Medicine [address] [phone] Lai Diop MD [address] [place] [address] documented as of this encounter Procedures Procedure Name Priority Date/Time Associated Diagnosis Comments AP OUTSIDE CONSULT Routine 11/12/2024 Elevated prostate specific antigen (PSA) documented in this encounter Results * Anatomic pathology outside consult (11/12/2024) Final Diagnosis A. Prostate, Left Middle [place] Biopsy: - Benign prostatic tissue. B. Prostate, Left Lateral [place] Biopsy: - Benign prostatic tissue. C. Prostate, Left Middle Middle Biopsy: - Benign prostatic tissue. D. Prostate, Left Lateral Middle Biopsy: - Atypical small acinar proliferation (JEAN), suspicious for adenocarcinoma. E. Prostate, Left Middle Base Biopsy: - Prostatic acinar adenocarcinoma (conventional type), grade group 4 (Karin score 4+4=8). - Tumor discontinuously involves 20% of 1 of 1 tissue core. F. Prostate, Left Lateral Base Biopsy: - Benign prostatic tissue. G. Prostate, Left Peripheral Zone Lesion Biopsy: - Benign prostatic tissue. H. Prostate, Right [place] Biopsy: - Prostatic acinar adenocarcinoma (conventional type), grade group 3 (Streator score 4+3=7). - Percentage pattern 4: 70% - Tumor continuously involves 20% of 1 of 1 tissue core. I. Prostate, Right Lateral [place] Biopsy: - Benign prostatic tissue. J. Prostate, Right Middle Middle Biopsy: - Benign prostatic tissue. K. Prostate, Right Lateral Middle Biopsy: - Prostatic acinar adenocarcinoma (conventional type), grade group 2 (Streator score 3+4=7). - Percentage pattern 4: 10% - Tumor continuously involves 40% of 1 of 1 tissue core. L. Prostate, Right Middle Base Biopsy: - Prostatic acinar adenocarcinoma (conventional type), grade group 2 (Streator score 3+4=7). - Percentage pattern 4: 35% - Tumor continuously involves 10% of 1 of 1 tissue core. M. Prostate, Right Lateral Base Biopsy: - Benign prostatic tissue. N. Prostate, Right Peripheral Zone Lesion Biopsy: - Prostatic acinar adenocarcinoma (conventional type), grade group 2 (Streator score 3+4=7). - Percentage pattern 4: 2% - Tumor continuously involves 14% of overall tissue, present in 3 of 3 tissue cores. O. Prostate, Midline Peripheral Zone [place] Biopsy: - Prostatic acinar adenocarcinoma (conventional type), grade group 1 (Karin score 3+3=6). - Tumor continuously involves 2% of overall tissue, present in 2 of 3 tissue cores. 11/25/2024 8:44 AM [facility] Clinical Information Elevated PSA = 5.5 (10/07/24) R97.20 [id number] 11/25/2024 8:44 AM [facility] Gross Description A. Prostate, Left [place] Biopsy: Received, properly labeled, are two H and E stained slides and two unstained slides. B. Prostate, Left Lateral [place] Biopsy: Received, properly labeled, are two H and E stained slides and two unstained slides. C. Prostate, Left Middle Middle Biopsy: Received, properly labeled, are two H and E stained slides and two unstained slides. D. Prostate, Left Lateral Middle Biopsy: Received, properly labeled, are two H and E stained slides and two unstained slides. E. Prostate, Left Middle Base Biopsy: Received, properly labeled, are two H and E stained slides and two unstained slides. F. Prostate, Left Lateral Base Biopsy: Received, properly labeled, are two H and E stained slides and two unstained slides. G. Prostate, Left Peripheral Zone Lesion Biopsy: Received, properly labeled, are two H and E stained slides and two unstained slides. H. Prostate, Right [place] Biopsy: Received, properly labeled, are two H and E stained slides and two unstained slides. I. Prostate, Right Lateral [place] Biopsy: Received, properly labeled, are two H and E stained slides and two unstained slides. J. Prostate, Right Middle Middle Biopsy: Received, properly labeled, are two H and E stained slides and two unstained slides. K. Prostate, Right Lateral Middle Biopsy: Received, properly labeled, are two H and E stained slides and two unstained slides. L. Prostate, Right Middle Base Biopsy: Received, properly labeled, are two H and E stained slides and two unstained slides. M. Prostate, Right Lateral Base Biopsy: Received, properly labeled, are two H and E stained slides and two unstained slides. N. Prostate, Right Peripheral Zone Lesion Biopsy: Received, properly labeled, are two H and E stained slides and two unstained slides. O. Prostate, Midline Peripheral Zone [place] Biopsy: Received, properly labeled, are two H and E stained slides and two unstained slides. /al 11/25/2024 8:44 AM [facility] Disclaimer Unless otherwise specified, all tissue is 10% NB formalin fixed and paraffin embedded. Technical pathology services provided by [facility] at [address] [place] [address] [address], [place] [address] (CLIA #[id number]/Juhi Lugo MD, Seam Steamer) 11/25/2024 8:44 AM [facility] Tissue Prostate / Unknown 11/12/20242024 2:23 PM EST Tissue specimen (specimen) Prostate / Unknown 11/12/2024 11/13/2024 2: 23 PM EST Tissue specimen (specimen) Prostate / Unknown 11/12/2024 11/13/2024 2: 23 PM EST Tissue specimen (specimen) Prostate / Unknown 11/12/2024 11/13/2024 2: 23 PM EST Tissue specimen (specimen) Prostate / Unknown 11/12/2024 11/13/2024 2: 23 PM EST Tissue specimen (specimen) Prostate / Unknown 11/12/2024 11/13/2024 2: 23 PM EST Tissue specimen (specimen) Prostate / Unknown 11/12/2024 11/13/2024 2: 23 PM EST Tissue specimen (specimen) Prostate / Unknown 11/12/2024 11/13/2024 2: 23 PM EST Tissue specimen (specimen) Prostate / Unknown 11/12/2024 11/13/2024 2: 23 PM EST Tissue specimen (specimen) Prostate / Unknown 11/12/2024 11/13/2024 2: 23 PM EST Tissue specimen (specimen) Prostate / Unknown 11/12/2024 11/13/2024 2: 23 PM EST Tissue specimen (specimen) Prostate / Unknown 11/12/2024 11/13/2024 2: 23 PM EST Tissue specimen (specimen) Prostate / Unknown 11/12/2024 11/13/2024 2: 23 PM EST Tissue specimen (specimen) Prostate / Unknown 11/12/2024 11/13/2024 2: 23 PM EST Tissue specimen (specimen) Prostate / Unknown 11/12/2024 11/13/2024 2: 23 PM EST us Ric Patel MD LAB PATHOLOGY ORDERABLES Final Result Performing Organization Address City/State/[facility] Co de Phone Number [facility] [address] [place] [address], documented in this encounter Visit Diagnoses Diagnosis Elevated prostate specific antigen (PSA) documented in this encounter Care Teams Machine Stemmer Relationship Specialty Start Date End Date Lai Diop MD [address] [place] [address] PCP - General 01/31/1998 documented as of this encounter
== END 2025-03-04 15:46 | disposition home or self-care (01) ==
PROVIDERS: PCP Internal Medicine Critical Care Medicine; Visit Provider Student in an Organized Health Care Education/Training Program
DX: J90 Pleural effusion, not elsewhere classified (principal)
CPT/HCPCS: 99213

== ENCOUNTER → 2025-03-04 15:15 | Outpatient (BNVA) | payer MEDICARE, OTHER, SELFPAY | PROVIDERS: PCP Internal Medicine Critical Care Medicine; Visit Provider Student in an Organized Health Care Education/Training Program | DX: J90 Pleural effusion, not elsewhere classified (principal) | CPT/HCPCS: 99212 ==